=== PATIENT | female | born 1955 | race African-American/Black ===

== ENCOUNTER 2017-04-13 16:48 | Emergency (ER) | payer MEDICARE, MEDICAID ==
[~2017-04-13] VITALS: Ht 167.6 cm; Wt 86.2 kg
[2017-04-13 16:54] VITALS: BP 108/68
[2017-04-13 18:44] VITALS: BP 112/70
--- NOTE | 2017-04-13 19:28 | Emergency Room Report ---
History of Present Illness General Chief Complaint: Upper Extremity Injury Source: Patient Present Illness HPI Patient sent in for evaluation of R wrist. Prominence noted today. She states she had an injury 2-3 months ago. This was not evaluated. The pain is improved , but now there is a bump in the wrist. No numbness. No hand or elbow tenderness. Allergies: Coded Allergies: No Known Allergies (Unverified , 04/13/17) Patient History Past Medical History: see triage record Social History: Denies: smoking Social History Narrative b and c with and sons (2) Nursing Documentation-PMH Hx Diabetes: Yes History Of Psychiatric Problem: Yes - schizo,dementia Review of Systems Constitutional: Denies: fever Musculoskeletal: Reports: see HPI Skin: Denies: rash Neurological: Reports: see HPI Hematologic/Lymphatic: Denies: easy bleeding Physical Exam Vital Signs Date Time Temp Pulse Resp B/P (MAP) Pulse Ox O2 Delivery O2 Flow Rate FiO2 04/13/17 16:44 98.0 78 16 103/64 97 Room Air 98.1 Sp02 EP Interpretation: reviewed, normal General Appearance: well appearing, no apparent distress Head: normocephalic, atraumatic Eyes: bilateral eye normal inspection, bilateral eye PERRL ENT: hearing grossly normal, normal voice, moist mucus membranes Neck: full range of motion, supple Respiratory: chest non-tender, lungs clear, no respiratory distress, speaking full sentences Cardiovascular #1: regular rate, rhythm Cardiovascular #2: 2+ radial (R) - capillary fill normal fingers Gastrointestinal: normal inspection Musculoskeletal: other - prominent R ulnar styloid - elbow and hand normal ROM and no deformity Neurologic: alert, motor strength/tone normal, sensory intact, normal gait Psychiatric: mood/affect normal Skin: no rash Medical Decision Making Diagnostic Impression: Primary Impression: Dislocation of wrist, right, closed Qualified Codes: S63.004A - Unspecified dislocation of right wrist and hand, initial encounter ER Course Patient with prominent R ulnar styloid several months post trauma. Ddx: fx, ganglion, dislocation, sprain amongst others. Xrays indicated. Patient declines pain medicine. Xray with dislocation at ulna. Wrist stable in position. Older injury, needs referral to orthopedist. Jorge applied by ERMD. Neurovasc normal. Patient stable for outpatient observation and treatment. Other X-Ray Diagnostic Results Other X-Ray Diagnostic Results : # of Views/Limited Vs Complete: 3 View Indication: Other EP Interpretation: Yes Interpretation: no soft tissue swelling, no fractures, other - ulnar dislocation Impression: Other Electronically Signed by: Tiburcio Otoole MD Last Vital Signs Date Time Temp Pulse Resp B/P (MAP) Pulse Ox O2 Delivery O2 Flow Rate FiO2 04/13/17 22:30 98.1 68 16 124/60 99 Room Air 98.1 Status: improved Disposition: ASSISTED LIVING Condition: Improved Scripts Ibuprofen* (MOTRIN*) 600 Mg Tablet 600 MG ORAL Q6H Y for For Pain, #20 TAB Prov: Tiburcio Otoole M.D. 04/13/17 Tiburcio Otoole M.D. Apr 13, 2017 19:28
[2017-04-13] MEDS ORDERED: IBUPROFEN600 MG ORAL (19:33)
[2017-04-13 22:15] VITALS: BP 124/60
[2017-04-13 22:30] VITALS: BP 124/60
--- NOTE | 2017-04-14 12:14 | Diagnostic Imaging Report ---
Indication: Pain Findings: 3 views of the right wrist were obtained. There is slight irregularity of the distal radius which is probably an old fracture. There is a positive ulnar variance. The study shows no definite acute fracture. IMPRESSION: No acute injury identified. Positive ulnar variance with old injury involving the distal radius versus a congenital abnormality.
== END 2017-04-13 22:30 | disposition home or self-care (01) ==
LOC: EDBD 16:48 → EMR 16:50
DX: S63.004A Unspecified dislocation of right wrist and hand, initial encounter (principal); X58.XXXA Exposure to other specified factors, initial encounter; Y92.9 Unspecified place or not applicable; E11.9 Type 2 diabetes mellitus without complications; F03.90 Unspecified dementia, unspecified severity, without behavioral disturbance, psychotic disturbance, mood disturbance, and anxiety; F20.9 Schizophrenia, unspecified
CPT/HCPCS: 29260; 99283